=== PATIENT | female | born 1950 | race Caucasian/White ===

== ENCOUNTER 2022-08-22 11:17 | Outpatient (CLI) | payer OTHER | END 2022-08-22 11:20 | disposition home or self-care (01) | LOC: SONOGRAMA 11:17 | PROVIDERS: ATTEND Pathology Anatomic Pathology & Clinical Pathology | DX: D44.0 Neoplasm of uncertain behavior of thyroid gland (principal); E07.9 Disorder of thyroid, unspecified ==

== ENCOUNTER 2022-12-12 09:22 | Outpatient (CLI) | payer OTHER | END 2022-12-12 09:24 | disposition home or self-care (01) | LOC: SONOGRAMA 09:22 | PROVIDERS: ATTEND Pathology Anatomic Pathology & Clinical Pathology | DX: D44.0 Neoplasm of uncertain behavior of thyroid gland (principal); E07.9 Disorder of thyroid, unspecified ==